=== PATIENT | male | born 1960 | race Caucasian/White ===

== ENCOUNTER → 2020-09-21 | Outpatient (CLI) | payer OTHER | LOC: CT 15:46 | PROVIDERS: ATTEND Family Medicine | DX: J44.9 Chronic obstructive pulmonary disease, unspecified (principal) | CPT/HCPCS: 71250 ==

== ENCOUNTER → 2021-04-17 | Outpatient (CLI) | payer OTHER | LOC: CT 13:48 | PROVIDERS: ATTEND Family Medicine | DX: R63.4 Abnormal weight loss (principal); F17.210 Nicotine dependence, cigarettes, uncomplicated | CPT/HCPCS: 71250 ==

== ENCOUNTER 2021-12-17 18:48 | Emergency (ER) | payer OTHER ==
[~2021-12-17] VITALS: Ht 190.5 cm; Wt 81.6 kg
[2021-12-17 19:56] LABS: BASOPHILS % 0.4 % (0.0-1.0); EOSINOPHILS # (AUTO) 0.1 (0.0-0.4); HEMATOCRIT 47.2 % (38.2-49.6); LYMPHOCYTES # (AUTO) 2.2 (1.0-3.2); LYMPHOCYTES % 30.5 % (18.0-39.1); MEAN CORPUSCULAR HEMOGLOBIN 34.8 pg (28-32); MEAN CORPUSCULAR VOLUME 96.7 fL (81-99); MONOCYTES # (AUTO) 0.9 (0.2-0.8); MONOCYTES % 12.6 % (4.4-11.3); NEUTROPHILS % 55.2 % (38.7-80.0); PLATELET COUNT 203 x10e3/uL (140-360); RED BLOOD COUNT 4.88 x10e6/uL (4.3-5.7); RED CELL DISTRIBUTION WIDTH 12.3 % (11.7-14.4)
[2021-12-17 20:07] LABS: INR 0.91; PROTHROMBIN TIME 13.1 seconds (11.9-14.5)
[2021-12-17 20:15] LABS: ALBUMIN 4.1 g/dL (3.5-5.0); ALBUMIN/GLOBULIN RATIO 1.4 (0.8-2.0); ANION GAP 18.7 mmol/L (8-16); CREATININE, SERUM 0.74 mg/dL (0.72-1.25); POTASSIUM 3.7 mmol/L (3.5-5.1)
[2021-12-17 21:54] VITALS: BP 146/89
== END 2021-12-17 21:55 | disposition home or self-care (01) ==
LOC: ER 19:29
DX: R04.2 Hemoptysis (principal); R09.81 Nasal congestion; F17.210 Nicotine dependence, cigarettes, uncomplicated
CPT/HCPCS: 36415; 71045; 80053; 83690; 84484; 85025; 85610; 93005; 99283

== ENCOUNTER → 2021-12-25 | Outpatient (CLI) | payer OTHER ==
[2021-12-25 14:57] LABS: CREATININE, SERUM 0.77 mg/dL (0.72-1.25)
== END ==
LOC: CT 13:51
PROVIDERS: ATTEND Family Medicine
DX: R04.2 Hemoptysis (principal)
CPT/HCPCS: 36415; 71260; 82565; 84520